=== PATIENT | female | born 1975 ===

== ENCOUNTER 2019-08-30 13:37 | Outpatient (REF) | payer BC, SELFPAY ==
[2019-08-30 22:00] LABS: Anion Gap 10.1 mmol/L (3-11); CO2 25.9 mmol/L (21.0-32.0); CREATININE 0.88 mg/dL (0.55-1.02); Calcium 9.4 mg/dL (8.5-10.1); Calculated LDL 74 mg/dL (<100); Chloride 106 mmol/L (98-107); Cholesterol 142 mg/dL (<200); Glucose 83 mg/dL (74-106); HDL Cholesterol 53 mg/dL (40-60); Potassium 4.3 mmol/L (3.5-5.1); Sodium 142 mmol/L (136-145); Triglyceride 76 mg/dL (<150)
[2019-08-30 22:34] LABS: BUN 10 mg/dL (7-18)
== END 2019-08-30 13:57 ==
LOC: NCHCN 13:37
PROVIDERS: Visit Provider Nurse Practitioner Family
DX: Z00.00 Encounter for general adult medical examination without abnormal findings (principal); Z13.220 Encounter for screening for lipoid disorders; Z13.228 Encounter for screening for other metabolic disorders
CPT/HCPCS: 80048; 80061

== ENCOUNTER 2022-07-01 17:25 | Outpatient (REF) | payer BC, SELFPAY ==
[2022-07-01 21:50] LABS: Hemoglobin A1C 5.3 % (<5.7)
[2022-07-01 22:09] LABS: ALT 33 U/L (14-59); AST 28 U/L (15-37); Alkaline Phosphatase 105 U/L (46-116); Anion Gap 8.2 mmol/L (3-11); BUN 13 mg/dL (7-18); Bilirubin, Total 0.2 mg/dL (0.2-1.0); CO2 26.8 mmol/L (21.0-32.0); Calcium 9.3 mg/dL (8.5-10.1); Calculated LDL 63 mg/dL (<100); Chloride 106 mmol/L (98-107); Cholesterol 137 mg/dL (<200); Glucose 100 mg/dL (74-106); HDL Cholesterol 52 mg/dL (40-60); Sodium 141 mmol/L (136-145); Triglyceride 114 mg/dL (<150)
[2022-07-03 09:42] LABS: Hepatitis C Ab w Rflx HCV PCR Negative (Negative)
[2022-07-03 10:01] LABS: HIV-1/2 Ag & Ab Screen Negative (Negative)
== END 2022-07-01 17:26 | disposition home or self-care (01) ==
LOC: NCHCN 17:25
PROVIDERS: Visit Provider Nurse Practitioner Family
DX: F10.10 Alcohol abuse, uncomplicated (principal); E66.9 Obesity, unspecified; Z11.59 Encounter for screening for other viral diseases; Z11.4 Encounter for screening for human immunodeficiency virus [HIV]; Z00.00 Encounter for general adult medical examination without abnormal findings; Z13.1 Encounter for screening for diabetes mellitus
CPT/HCPCS: 80053; 80061; 86803; 87389; 83036

== ENCOUNTER 2022-11-19 19:20 | Outpatient (REF) | payer BC, SELFPAY ==
--- NOTE | 2022-11-19 18:25 | PAPFT_PTH ---
PATIENT: Pham Galaviz LOC: [facility]#:[id number] AGE/SX: 47/F ROOM: RE11/19/[address]: Maxine Perez : 1975 BED: DIS: 11/19/2022 SPEC #: [id number] RECD: 11/20/22 18:00 STATUS: JASPREET MEEHAN #: [id number] GUILLAUME: 11/19/22 18:[address]: Maxine Perez DEPT: [facility] Cytology RECD BY: Angelica Coombs Tissues: 1 - CX/ENDOCX FOR PAP SMEARS Procedures: PAP THIN PREP/[facility] Screening HPV DNA PROBE Comments: [id number] (CHLAMYDIA/GC)
[2022-11-21 15:09] LABS: Chlamydia Result Negative (Negative); GC Result Negative (Negative)
== END 2022-11-19 19:21 | disposition home or self-care (01) ==
LOC: NCHCN 19:20
PROVIDERS: Visit Provider Nurse Practitioner Family
DX: Z11.3 Encounter for screening for infections with a predominantly sexual mode of transmission (principal); Z12.4 Encounter for screening for malignant neoplasm of cervix; Z11.51 Encounter for screening for human papillomavirus (HPV)
CPT/HCPCS: 87491; 87591; 88142; 87624

== ENCOUNTER 2024-10-25 14:21 | Outpatient (REF) | payer BC, SELFPAY ==
[2024-10-25 16:05] LABS: HCT 39.3 % (36.0-46.0); HGB 12.4 g/dL (11.2-15.7); MCH 27.3 pg (27.0-33.0); MCHC 31.6 % (32.0-36.0); MCV 87 fL (80-95); MPV 11.6 fL (8.0-11.0); Platelet Count 243 10^3/uL (130-400); RBC 4.54 10^6/uL (3.93-5.22); RDW 13.2 % (11.7-14.6); RDW-SD 41.2 fL; WBC 4.27 10^3/uL (4.4-10.8)
[2024-10-25 16:20] LABS: Anion Gap 7.4 mmol/L (3-11); BUN 15 mg/dL (7-18); CO2 29.6 mmol/L (21.0-32.0); Calcium 9.6 mg/dL (8.5-10.1); Chloride 105 mmol/L (98-107); Estimated GFR 79.35 (mL/min/1.73m2); Glucose 91 mg/dL (74-106); Potassium 4.5 mmol/L (3.5-5.1); Sodium 142 mmol/L (136-145)
== END 2024-10-25 14:22 | disposition home or self-care (01) ==
LOC: NCHCN 14:21
PROVIDERS: Visit Provider Nurse Practitioner Family
DX: Z01.818 Encounter for other preprocedural examination (principal)
CPT/HCPCS: 80048; 85027